=== PATIENT | male | born 1975 | race Caucasian/White ===

== ENCOUNTER 2021-01-28 15:15 | Emergency (ER) | payer OTHER ==
[~2021-01-28] VITALS: Ht 175.3 cm; Wt 88.5 kg
[2021-01-28 15:15] VITALS: BP 135/89
--- NOTE | 2021-01-28 15:49 | NUR ---
Patient discharged to home in stable condition. Written and verbal after care instructions given. Patient verbalizes understanding of instruction. Pt ambulatory with a steady gait
--- NOTE | 2021-01-28 15:49 | NUR ---
COVID SWAB DONE AND SENT TO LAB
== END 2021-01-28 15:50 | disposition home or self-care (01) ==
LOC: ER 15:22
DX: R53.83 Other fatigue (principal); Z20.822 Contact with and (suspected) exposure to COVID-19
CPT/HCPCS: 82962; 87426; 99283; C9803